=== PATIENT | female | born 1960 | race Caucasian/White ===

== ENCOUNTER → 2024-04-10 15:54 | Outpatient (CLI) | payer OTHER, SELFPAY ==
--- NOTE | 2024-04-10 15:56 | DI.RAD.S_ITS ---
PROCEDURE: XR KNEE RT 3V INDICATIONS: Fall on knee today. Anterior pain swelling TECHNIQUE: 3 views of the knee were acquired. COMPARISON: None. FINDINGS: Bones: Nondisplaced fracture at the lateral right patella. No dislocations. No suspicious bony lesions. Soft tissues: No joint effusion. No suspicious soft tissue calcifications. IMPRESSION: Nondisplaced fracture at the lateral right patella. Dictated by: Madhav Dahl M.D. on 04/10/2024 at 17:14 Approved by: Madhav Dahl M.D. on 04/10/2024 at 17:16
== END ==
PROVIDERS: Referring Provider Physician Assistant Medical; Visit Provider Physician Assistant Medical
DX: S82.001A Unspecified fracture of right patella, initial encounter for closed fracture (principal); S80.01XA Contusion of right knee, initial encounter; X58.XXXA Exposure to other specified factors, initial encounter
CPT/HCPCS: 73562